=== PATIENT | female | born 1955 | race Caucasian/White ===

== ENCOUNTER 2016-11-01 06:30 | Day surgery (SDC) | payer OTHER ==
[~2016-11-01] VITALS: Ht 147.3 cm; Wt 58.0 kg
[2016-11-01] VITALS (12 sets, daily range): BP systolic 124–157; BP diastolic 70–86; PULSE 62–75; RESP 10–22; Ht 147.3 cm; Wt 58.0 kg
[2016-11-01] MEDS ORDERED: CEFAZOLIN 1 GM INJ ONE ×2 (07:00→11:19)
[2016-11-01] MEDS ORDERED: SOD CHLORIDE 0.9% 1,000 ML IV SCH (07:00)
[2016-11-01 09:03] LABS: ADD SCAN DIFF NO
--- NOTE | 2016-11-01 09:05 | RADRPT ---
PROCEDURE: Chest Radiograph. CLINICAL INDICATION: Preop TECHNIQUE: Single frontal chest radiograph. COMPARISON: None available FINDINGS: Heart size is within normal limits. Atherosclerotic calcifications are present. No infiltrate or effusion is seen. The bones are intact. IMPRESSION: 1. No evidence of acute cardiopulmonary disease. 2. Atherosclerotic vascular disease. RPTAT: KK .Alex Camarena MD, MD Date Time Electronically viewed and signed by .Alex Camarena MD, on 11/01/2016 09:04 .B/
[2016-11-01 09:14] LABS: BASOPHILS % 0.6 % (0.0-2.0); EOSINOPHILS # 0.1 10^3/ul (0.0-0.5); EOSINOPHILS % 2.3 % (0.0-7.0); HEMATOCRIT 40.1 % (37.0-47.0); HEMOGLOBIN 13.1 g/dl (12.0-16.0); LYMPHOCYTES # 2.1 10^3/ul (0.8-2.9); LYMPHOCYTES % 40.5 % (15.0-51.0); MEAN CORPUSCULAR HEMOGLOBIN 27.9 pg (29.0-33.0); MEAN CORPUSCULAR HGB CONC 32.7 g/dl (32.0-37.0); MEAN CORPUSCULAR VOLUME 85.3 fl (82.0-101.0); MEAN PLATELET VOLUME 11.1 fl (7.4-10.4); MONOCYTE # 0.3 10^3/ul (0.3-0.9); MONOCYTES % 6.3 % (0.0-11.0); NEUTROPHIL # 2.6 10^3/ul (1.6-7.5); NEUTROPHILS % 50.1 % (39.0-77.0); PLATELET COUNT 247 10^3/UL (140-415); RED CELL DISTRIBUTION WIDTH 12.5 % (11.5-14.5); WHITE BLOOD COUNT 5.1 10^3/ul (4.8-10.8)
[2016-11-01] MEDS ORDERED: BENA10TA48 PO (09:22)
[2016-11-01 09:27] LABS: INR 0.91; PROTIME 12.3 Sec (12.2-14.2)
[2016-11-01 09:28] LABS: PARTIAL THROMBOPLASTIN TIME 30.5 Sec (25.0-35.0)
[2016-11-01 09:30] LABS: CALCIUM 9.1 mg/dl (8.4-10.2); CREATININE 0.62 mg/dl (0.44-1.00)
[2016-11-01] MEDS ORDERED: FENTAnyl 50 MCG/ML VIAL ONE (10:29)
[2016-11-01] MEDS ORDERED: PROPOFOL 20 ML ONE (10:29)
[2016-11-01] MEDS ORDERED: METOCLOPRAMIDE 10 MG INJ ONE (11:19)
[2016-11-01] MEDS ORDERED: DEXAMETHASONE 4 MG/ML 1 ML INJ ONE (11:19)
[2016-11-01] MEDS ORDERED: ONDANSETRON 4 MG INJ ONE (11:19)
[2016-11-01] MEDS ORDERED: KETOROLAC 30 MG INJ ONE (11:19)
[2016-11-01] MEDS ORDERED: HYDROmorphONE (0.2 MG/ML) 10ML SYG IV PRN ×3 (11:30)
[2016-11-01] MEDS ORDERED: hydrALAzine 20 MG INJ IV PRN (11:30)
[2016-11-01] MEDS ORDERED: EPHEDrine SULFATE 50 MG/5 ML SYG IV PRN (11:30)
[2016-11-01] MEDS ORDERED: morphine (1 MG/ML) 10ML SYRINGE IV PRN ×2 (11:30)
[2016-11-01] MEDS ORDERED: LABETALOL HCL 20MG INJ IV PRN (11:30)
[2016-11-01] MEDS ORDERED: DIPHENHYDRAMINE 50 MG INJ IV PRN (11:30)
[2016-11-01] MEDS ORDERED: ONDANSETRON 4 MG INJ IV PRN (11:30)
--- NOTE | 2016-11-01 12:22 | OPR ---
DATE OF OPERATION: 11/01/2016 PREOPERATIVE DIAGNOSIS: Right breast mass, core biopsy positive for lobular carcinoma in situ. POSTOPERATIVE DIAGNOSIS: Right breast mass, core biopsy positive for lobular carcinoma in situ. OPERATION PERFORMED: Right needle-directed excisional breast biopsy. ANESTHESIA: General. ANESTHESIOLOGIST: SURGEON: Kenrick Camp MD [employer] SUPERVISOR: Kerry Brooks MD INDICATIONS FOR PROCEDURE: The patient is a 61-year-old female who presented with a right breast ma ss. Workup including mammography and subsequent biopsy were consistent with lobular carcinoma in si tu, full excision was recommended. The patient consented and was scheduled for surgery. DESCRIPTION OF PROCEDURE: On the morning of surgery, the patient underwent localization of the lesi on at [facility]. She was then brought to the hospital and placed under general anesthesia. The right breast was prepped and draped in the usual sterile fashion. The previously placed local ization wire was at approximately the 2 o'clock location, approximately 3-4 cm from the nipple-areol ar border. There was a palpable mass in this region as well. A curvilinear incision was made direc tly over the mass and subcutaneous tissue was dissected with cautery. The skin edges were elevated with skin hooks. Wide circumferential dissection of the tissue associated with the wire then took p lace, taking great care to ensure adequate margin. Specimen was elevated, transected, oriented, and sent for radiographic confirmation of capture. Capture was confirmed. The specimen was then sent for permanent pathologic analysis. The wound was irrigated. Minimal bleeding was controlled with c autery. The skin was then reapproximated with a 4-0 Vicryl suture in subcuticular fashion, and li oin and Steri-Strips were applied. Patient tolerated procedure well. Estimated blood loss was 20 m L. There were no complications. The patient was transported in stable condition to the recovery room. Dictated By: KENRICK CAMP MD TL/NTS Conf#: [id number] DID#: [id number] CC: BRIELLE BROOKS MD;*EndCC*
--- NOTE | 2016-11-01 17:20 | RADRPT ---
Vent Rate: 55 bpm RR Interval: 0 msec ID Interval: 156 msec QRS Duration: 86 msec QT Interval: 430 msec QTC Interval: 411 msec P-R-T [place]: 47 - 4 - -27 degrees Sinus bradycardia T wave abnormality, consider anterior ischemia Abnormal ECG Electronically Signed By: Les Ott [id number]
== END 2016-11-01 13:40 | disposition home or self-care (01) ==
LOC: SDS 06:30
PROVIDERS: ATTEND Surgery Surgical Oncology
DX: D05.11 Intraductal carcinoma in situ of right breast (principal); I10 Essential (primary) hypertension; J45.909 Unspecified asthma, uncomplicated
CPT/HCPCS: 19120; 71010; 80048; 85025; 85610; 85730; 88307; 93005; J0690; J1100; J1170; J1885; J2405; J2765; J3010; Z7512; Z7610

== ENCOUNTER 2016-11-22 09:40 | Day surgery (SDC) | payer OTHER ==
[~2016-11-22] VITALS: Ht 147.3 cm; Wt 58.0 kg
[2016-11-22] VITALS (13 sets, daily range): BP systolic 134–179; BP diastolic 66–103; PULSE 50–75; RESP 12–24; Ht 147.3 cm; Wt 58.0 kg
[~2016-11-22 09:40] MED LIST: BENA10TA48 PO
--- NOTE | 2016-11-22 11:54 | RADRPT ---
PROCEDURE: Chest Radiograph. CLINICAL INDICATION: Preop TECHNIQUE: Single frontal chest radiograph. COMPARISON: Chest radiograph 11/01/2016 FINDINGS: Heart size is within normal limits. Atherosclerotic calcifications are present. No infiltrate or effusion is seen. The bones are intact. IMPRESSION: 1. No evidence of acute cardiopulmonary disease. 2. Atherosclerotic vascular disease. RPTAT: AA .Alex Camarena MD, MD Date Time Electronically viewed and signed by .Alex Camarena MD, MD on 11/22/2016 11:54 .B/
[2016-11-22] MEDS ORDERED: LIDOCAINE 2% (SDV) 5 ML INJ ONE (12:05)
[2016-11-22] MEDS ORDERED: NEOSTIGMINE 3 MG/3 ML SYRINGE ONE (12:05)
[2016-11-22] MEDS ORDERED: PROPOFOL 20 ML ONE (12:05)
[2016-11-22] MEDS ORDERED: ROCURONIUM 50 MG INJ ONE (12:05)
[2016-11-22] MEDS ORDERED: GLYCOPYRROLATE 0.4 MG INJ ONE (12:05)
[2016-11-22] MEDS ORDERED: MIDAZOLAM 1 MG/ML 2 ML INJ ONE (12:06)
[2016-11-22] MEDS ORDERED: DEXAMETHASONE 4 MG/ML 1 ML INJ ONE (12:06)
[2016-11-22] MEDS ORDERED: ONDANSETRON 4 MG INJ ONE (12:06)
[2016-11-22] MEDS ORDERED: SOD CHLORIDE 0.9% 1,000 ML IV SCH (13:00)
[2016-11-22] MEDS ORDERED: CEFAZOLIN 1 GM/50 ML (PMX) 50 ML IVPB ONE (13:00)
[2016-11-22 13:14] LABS: ADD SCAN DIFF NO
[2016-11-22 13:16] LABS: BASOPHILS % 0.4 % (0.0-2.0); EOSINOPHILS # 0.2 10^3/ul (0.0-0.5); EOSINOPHILS % 3.2 % (0.0-7.0); HEMATOCRIT 39.9 % (37.0-47.0); HEMOGLOBIN 13.4 g/dl (12.0-16.0); LYMPHOCYTES # 1.8 10^3/ul (0.8-2.9); LYMPHOCYTES % 38.2 % (15.0-51.0); MEAN CORPUSCULAR HEMOGLOBIN 28.3 pg (29.0-33.0); MEAN CORPUSCULAR HGB CONC 33.6 g/dl (32.0-37.0); MEAN CORPUSCULAR VOLUME 84.4 fl (82.0-101.0); MEAN PLATELET VOLUME 11.8 fl (7.4-10.4); MONOCYTE # 0.3 10^3/ul (0.3-0.9); MONOCYTES % 5.8 % (0.0-11.0); NEUTROPHIL # 2.4 10^3/ul (1.6-7.5); NEUTROPHILS % 52.2 % (39.0-77.0); PLATELET COUNT 265 10^3/UL (140-415); RED BLOOD COUNT 4.73 10^6/ul (4.20-5.40); RED CELL DISTRIBUTION WIDTH 12.4 % (11.5-14.5); WHITE BLOOD COUNT 4.7 10^3/ul (4.8-10.8)
[2016-11-22] MEDS ORDERED: HYDROCODONE/APAP (7.5/325) TAB PO PRN (13:30)
[2016-11-22 13:35] LABS: INR 0.84; PROTIME 11.5 Sec (12.2-14.2); PT RATIO 0.9
[2016-11-22 13:36] LABS: CREATININE 0.54 mg/dl (0.44-1.00); PARTIAL THROMBOPLASTIN TIME 30.2 Sec (25.0-35.0); POTASSIUM 3.4 mmol/L (3.5-5.1)
[2016-11-22 13:37] LABS: CALCIUM 9.5 mg/dl (8.4-10.2)
--- NOTE | 2016-11-22 13:46 | RADRPT ---
Vent Rate: 56 bpm RR Interval: 0 msec ME Interval: 154 msec QRS Duration: 88 msec QT Interval: 442 msec QTC Interval: 426 msec P-R-T [place]: 44 - 1 - -33 degrees Sinus bradycardia T wave abnormality, consider anterolateral ischemia Abnormal ECG Electronically Signed By: Efren Moss [id number]
[2016-11-22] MEDS ORDERED: FENTAnyl 50 MCG/ML VIAL IV PRN ×3 (14:00)
[2016-11-22] MEDS ORDERED: DIPHENHYDRAMINE 50 MG INJ IV PRN (14:00)
[2016-11-22] MEDS ORDERED: TRIMETHOBENZAMIDE 100 MG/ML VIAL IM PRN (14:00)
[2016-11-22] MEDS ORDERED: LABETALOL HCL 20MG INJ IV PRN (14:00)
[2016-11-22] MEDS ORDERED: ONDANSETRON 4 MG INJ IV PRN (14:00)
[2016-11-22] MEDS ORDERED: MEPERIDINE 25 MG INJ IV PRN (14:00)
[2016-11-22] MEDS ORDERED: MIDAZOLAM 1 MG/ML 2 ML INJ IV PRN (14:00)
[2016-11-22] MEDS ORDERED: EPHEDrine SULFATE 50 MG/5 ML SYG IV PRN (14:00)
[2016-11-22] MEDS ORDERED: HYDROmorphONE (0.2 MG/ML) 10ML SYG IV PRN ×3 (14:00)
[2016-11-22] MEDS ORDERED: hydrALAzine 20 MG INJ IV PRN (14:00)
--- NOTE | 2016-11-22 14:07 | OPR ---
DATE OF OPERATION: 11/22/2016 PREOPERATIVE DIAGNOSIS: History of ductal carcinoma right breast, need for reexcision partial maste ctomy. POSTOPERATIVE DIAGNOSIS: History of ductal carcinoma right breast, need for reexcision partial mast ectomy. OPERATION PERFORMED: Right reexcision partial mastectomy. ANESTHESIA: General. ANESTHESIOLOGIST: Jaciel Chaudhari MD SURGEON: Kenrick Camp MD STOCK ROOM MANAGER: Cynthia Brooks MD INDICATIONS FOR PROCEDURE: The patient is a 61-year-old female who underwent surveillance mammograp hy and was found to have suspicious lesion in her right breast. Subsequent excisional biopsy reveal ed ductal carcinoma in situ with positive margin. The patient was counseled as to the need for reex cision. She consented and was scheduled for surgery. DESCRIPTION OF PROCEDURE: The patient was brought to the operating theater where she was placed und er general anesthesia. The right breast was prepped and draped in the usual sterile fashion. Previ ous surgical incision was reincised with 15 blade scalpel. Seroma cavity was entered and straw-colo red seroma fluid was evacuated with suction. Retractors were then used to elevate the skin edges an d resection of the remaining posterior margin took place using cautery. Specimen was removed, orien varun and sent for permanent pathologic analysis. The wound was irrigated. Minimal bleeding was cont rolled with cautery. Skin was then reapproximated with a deep dermal layer of 4-0 Vicryl sutures fo llowed by final skin approximation with 5-0 PDS sutures in subcuticular fashion. Benzoin and Steri- Strips were then applied. The patient tolerated the procedure well. Estimated blood loss was 10 mL . There were no complications and the patient was transported in stable condition to the [facility]. Dictated By: KENRICK CAMP MD TL/NTS Conf#: [id number] DID#: [id number] CC: CYNTHIA BROOKS MD;*EndCC*
== END 2016-11-22 16:45 | disposition home or self-care (01) ==
LOC: SDS 09:40
PROVIDERS: ATTEND Surgery Surgical Oncology
DX: N60.31 Fibrosclerosis of right breast (principal); Z85.3 Personal history of malignant neoplasm of breast; I10 Essential (primary) hypertension
CPT/HCPCS: 19301; 71010; 80048; 85025; 85610; 85730; 88307; 93005; J1100; J2250; J2405; J2710; J3010; Z7512; Z7610